=== PATIENT | female | born 1950 | race Caucasian/White ===

== ENCOUNTER → 2020-10-22 | Outpatient (CLI) | payer MEDICARE, OTHER | LOC: MAMO 09-11 11:00 | DX: Z12.31 Encounter for screening mammogram for malignant neoplasm of breast (principal) | CPT/HCPCS: 77063; 77067 ==

== ENCOUNTER 2021-03-11 16:10 | Emergency (ER) | payer MEDICARE, OTHER ==
[2021-03-11] MEDS ORDERED: BENADRYL 50MG C50 MG PO (18:28)
[2021-03-11] MEDS ORDERED: PREDNISONE 20 M20 MG PO (18:28)
[2021-03-11] MEDS ORDERED: PEPCID20 MG PO (18:28)
[2021-03-11] MEDS ORDERED: PERCOCET 5/325 T1 EA PO (21:44)
== END 2021-03-11 21:20 | disposition home or self-care (01) ==
LOC: ER1 16:10
DX: S60.460A Insect bite (nonvenomous) of right index finger, initial encounter (principal); Z90.710 Acquired absence of both cervix and uterus; Z88.5 Allergy status to narcotic agent; Z79.899 Other long term (current) drug therapy; W57.XXXA Bitten or stung by nonvenomous insect and other nonvenomous arthropods, initial encounter
CPT/HCPCS: 96372; 96374; 96375; 99281; J1170; J1200; J2930

== ENCOUNTER 2021-07-31 16:15 | Emergency (ER) | payer MEDICARE, OTHER ==
[~2021-07-31 16:15] MED LIST: BENADRYL 50MG C50 MG PO; PEPCID20 MG PO; PERCOCET 5/325 T1 EA PO; PREDNISONE 20 M20 MG PO
[2021-07-31 17:55] LABS: HEMOGLOBIN 14.2 gm/dl (12.3-15.3); RED BLOOD COUNT 4.59 M/UL (4.00-5.10); WHITE BLOOD COUNT 5.5 K/UL (4.5-11.0)
[2021-07-31 19:41] LABS: BUN/CREATININE RATIO 17 (0-10)
[2021-07-31] MEDS ORDERED: LODINE CAP 300300 MG PO (22:47)
[2021-07-31] MEDS ORDERED: ZOFRAN ODT 4 MG4 MG PO (22:47)
== END 2021-07-31 23:45 | disposition home or self-care (01) ==
LOC: ER1 16:15
PROVIDERS: Physician Assistant
DX: K80.80 Other cholelithiasis without obstruction (principal); K63.89 Other specified diseases of intestine; I10 Essential (primary) hypertension; Z90.710 Acquired absence of both cervix and uterus; Z90.49 Acquired absence of other specified parts of digestive tract; Z88.5 Allergy status to narcotic agent
CPT/HCPCS: 71045; 80048; 80076; 81001; 82550; 82553; 83690; 83874; 84484; 85025; 96374; 96375; 99284; J1170; J1885; J2405; Q9967

== ENCOUNTER → 2022-02-08 | Outpatient (CLI) | payer MEDICARE, OTHER ==
[~2022-02-08] MED LIST changes: +LODINE CAP 300300 MG PO; +ZOFRAN ODT 4 MG4 MG PO
== END ==
LOC: MAMO 01-31 13:30
DX: Z12.31 Encounter for screening mammogram for malignant neoplasm of breast (principal)
CPT/HCPCS: 77063; 77067